=== PATIENT | female | born 1975 | race Caucasian/White ===

== ENCOUNTER → 2023-10-23 10:07 | Outpatient (BNVA) | payer SELFPAY | PROVIDERS: Visit Provider Physician Assistant Surgical ==

== ENCOUNTER 2023-12-29 07:58 | Outpatient (AMB) | payer OTHER, SELFPAY ==
--- NOTE | 2023-12-29 08:32 | MHC.OFFVISWM ---
VS Expanded 12/29/23 08:49 Height 5 ft 3.5 in Weight 275 lb 2 oz BMI 48.0 Body Fat % 48.6 Body Fat Mass 133.6 Fat Free Mass 141.6 Visceral Fat Rating 17 Body Water % 36.7 Body Water Mass 101 Basal Metabolic Rate/Score 2,020 Intake Visit Reasons: TV Revision SWL BMI 48 *SEE COMMENTS* Allergies No Known Allergies Allergy (Verified 12/29/23 08:32) Medication List - Last Reconciled 12/29/23 by Bob Morris MD asharidha root extract mg PO pwrunva-tipzbwsqymyxp-pfolamxt 250-250-65 mg (Excedrin Migraine) 1 tab PO Q4-6H PRN ibuprofen 800 mg PO Q8H PRN fvstcapz-rfj-hwta-FA-vit K-lut 4 mg iron-200 mcg-25 mcg (Centrum Minis Women 50 Plus) tabs PO zolpidem 10 mg PO BEDTIME PRN HPI HPI TV Revision SWL BMI 48 *SEE COMMENTS*: Details: Start time: 8.20am, End time: 9.09am ?I spent 44 minutes speaking with the patient on the phone plus an additional 5 minutes reviewing and updating records for a total of 49 minutes HPI Comments Details: Previous weight loss efforts: lap band Wakes up: 5am, sleeps: 9pm Breakfast: 8am (2 boiled eggs Lunch: 12pm (cafeteria food: salad bar, soup, grilled cheese Dinner: 6pm (eggs and toast, mac&cheese) Snacks: 10am (string cheese with yogurt), 4pm (protein bar, or yogurt, or string cheese), 9pm (chips, sweets) Exercise: has a home elliptical Fluids: Coffee: none, hot tea: 1-2/wk (lemon with honey), Soda: none, juice: lemonade, ETOH: 1-2/wk (2 Vodkas) [facility] Medical History (Updated 12/29/23 @ 08:38 by Bob Morris MD) Insomnia Depression Migraines Hypertension Morbid obesity Surgical History (Updated 12/29/23 @ 08:38 by Bob Morris MD) S/p bilateral carpal tunnel release Hx of laparoscopic gastric banding Telehealth Telehealth Telehealth Platform: Telephone Location of provider rendering services: practice address Location of patient: address on file Patient Identification confirmed using: Name, : Yes Telehealth method: voice only Patient verbally consented to treatment: Yes Patient verbally consented to billing insurance company: Yes Patient informed of any privacy concerns related to visit: Yes Minutes spent on Phone/Video with Pt.: 49 Assessment & Plan Assessment & Plan (1) Morbid obesity: Code(s): E66.01 - Morbid (severe) obesity due to excess calories Category: Medical Plan: 1.? Plan for lap band removal and conversion to sleeve gastrectomy. If diaphragmatic or ventral hernias are present at time of surgery, these will be repaired laparoscopically as well. Risks and complications include possible conversion to an open procedure, anastomotic leak, bleeding requiring transfusion, small bowel obstruction, , DVT and pulmonary embolism, cardiac, or pulmonary complications, as senior living complications such as anastomotic ulcer, insufficient weight loss and vitamin deficiencies. I emphasized the importance of close follow-up, adherence to instructions and good communication. 2. You will receive a link of our software halle to generate an individualized nutritional and exercise plan specific for you. Please send me a screenshot of the plans you will generate Meal to include lean meat (beef, fish, pork, turkey, chicken), or georgian yogurt, or egg whites, or beans with a salad with olive oil and fruits (berries, pears, apples, kiwi). Avoid salt, breads, potatoes, rice, pasta, desserts. ?3. If you choose shakes, each shake would be drunk slowly, like coffee in a period of 2 hours. ?4. If you choose bars, cut each bar in 4 pieces and eat each piece in 30min ?to make each bar last 2 hours. ?5. I emphasized the importance of measuring accurately the food portion and measure it when serving the food in plate ?6. The meal portions include a specific number of forks of meat and salad. You always eat the meat portion but you can replace up to half of salad/vegetables portion with rice, potatoes or pasta, or a fruit ?if you like. The less you do it the better weight loss will be. ?7. One full-size fork is what it can be scooped on the fork without falling aside and not what can be bit with the fork. Use regular forks like those you find in a typical restaurant. ?8.? Please send me weight measurements as soon as possible and then once a week. Always include your diet and exercise plan. 9. The best choice would be to purchase a stationary bike, elliptical or treadmill at home that can track calories. Let me know if you do so I can give you an exercise plan. ?10.?It is important of avoiding and for at least 18 months postoperatively and has been discussed at the infosession. ?11. Goal is to lose at least 1.5-2lbs per week ?12. Goal to lose 10% of your weight before surgery, which is about 28lbs. Ultimate weight goal: 247lbs before surgery 13. Please follow the diet plan exactly without any change. If you don't like something about the plan or you feel hungry you need to communicate with me so I can help you revise the plan. You should not change the plan yourself. 14. To be scheduled for EGD due to history of lap band to rule band erosion. The possibility of biopsies was discussed. Patient needs to avoid use of NSAIDs and aspirin for 1 week prior to EGD. Risks of perforation and bleeding was discussed with the patient. This will be an outpatient procedure with IV sedation. Orders: Orders Vitamin B12 and Folate Today E66.01 - Morbid (severe) obesity due to excess calories, I10 - Essential (primary) hypertension Zinc Today E66.01 - Morbid (severe) obesity due to excess calories, I10 - Essential (primary) hypertension Vitamin B1 Today E66.01 - Morbid (severe) obesity due to excess calories, I10 - Essential (primary) hypertension Vitamin A Today E66.01 - Morbid (severe) obesity due to excess calories, I10 - Essential (primary) hypertension Ferritin Today E66.01 - Morbid (severe) obesity due to excess calories, I10 - Essential (primary) hypertension Vitamin D 25-OH Total Today E66.01 - Morbid (severe) obesity due to excess calories, I10 - Essential (primary) hypertension XR chest 2V Today E66.01 - Morbid (severe) obesity due to excess calories, I10 - Essential (primary) hypertension ECG 12 lead EKG Today E66.01 - Morbid (severe) obesity due to excess calories, I10 - Essential (primary) hypertension FL upper GI w air Today E66.01 - Morbid (severe) obesity due to excess calories, I10 - Essential (primary) hypertension Insulin Today E66.01 - Morbid (severe) obesity due to excess calories, I10 - Essential (primary) hypertension Hemoglobin A1c Today E66.01 - Morbid (severe) obesity due to excess calories, I10 - Essential (primary) hypertension H Pylori Breath Test Today E66.01 - Morbid (severe) obesity due to excess calories, I10 - Essential (primary) hypertension Complete Blood Count Auto Diff Today E66.01 - Morbid (severe) obesity due to excess calories, I10 - Essential (primary) hypertension Lipid Panel Today E66.01 - Morbid (severe) obesity due to excess calories, I10 - Essential (primary) hypertension IRON PROFILE Today E66.01 - Morbid (severe) obesity due to excess calories, I10 - Essential (primary) hypertension Comprehensive Met. Panel Today E66.01 - Morbid (severe) obesity due to excess calories, I10 - Essential (primary) hypertension C Reactive Protein Today E66.01 - Morbid (severe) obesity due to excess calories, I10 - Essential (primary) hypertension TSH reflex Free T4 Today E66.01 - Morbid (severe) obesity due to excess calories, I10 - Essential (primary) hypertension US abdomen comp w elastography Today E66.01 - Morbid (severe) obesity due to excess calories, I10 - Essential (primary) hypertension Referrals Nutrition/Dietitian Referral E66.01 - Morbid (severe) obesity due to excess calories, I10 - Essential (primary) hypertension Behavioral Health Referral E66.01 - Morbid (severe) obesity due to excess calories, I10 - Essential (primary) hypertension
[2023-12-29 08:49] VITALS: BMI 48.0
== END 2023-12-29 09:10 | disposition home or self-care (01) ==
LOC: HO.HBS 07:58
PROVIDERS: Visit Provider Surgery
DX: E66.01 Morbid (severe) obesity due to excess calories (principal)
CPT/HCPCS: 99204

== ENCOUNTER → 2023-12-29 07:58 | Outpatient (BNVA) | payer OTHER, SELFPAY | PROVIDERS: Visit Provider Surgery ==

== ENCOUNTER 2024-01-02 07:55 | Outpatient (REF) | payer OTHER, SELFPAY ==
--- NOTE | ~2024-01-02 | US_ITS ---
EXAMINATION: US COMPLETE ABDOMEN WITH LIVER ELASTOGRAPHY CLINICAL INFORMATION: Morbid obesity. COMPARISON: Selected images of the abdomen and pelvic CT scan of 03/31/2015. TECHNIQUE: Real-time imaging of the abdominal viscera. Noninvasive ultrasound liver fibrosis assessment is performed using Ellen ElastPQ point quantification shear wave elastography (2D-SWE) with a C5-2 MHz transducer. Multiple elastography samples are obtained. The examination is somewhat technically limited by presence of shadowing from bowel gas and patient's body habitus. FINDINGS: PANCREAS: Small portions of the pancreatic head and distal pancreatic tail are obscured from visualization by overlying bowel gas. Remainder of the pancreas appears unremarkable. ABDOMINAL AORTA: The proximal, middle, and visualized distal aortic segments are normal in caliber. INFERIOR VENA CAVA: Visualized portions are normal. LIVER: The liver is normal in size and contour. The liver parenchymal echogenicity appears normal. Within the limits of study no focal liver lesion is seen. No intrahepatic biliary ductal dilatation is noted. The right lobe measures 14.8 cm in length. The left lobe measures 10.3 cm in length. Portal flow is towards the liver (hepatopetal). Shear wave liver elastography median stiffness is 1.43 m/s (reference: normal median stiffness is 1.3 m/s or less). IQR/median stiffness to assess sampling precision is 0.19 (reference: good quality data set is IQR/median stiffness of 0.15 or less). GALLBLADDER: Normal. The gallbladder is physiologically distended without evidence of stones, sludge, polyps, wall thickening or pericholecystic fluid. COMMON BILE DUCT: Not well visualized. The visualized portion of the proximal common bile duct measures 0.3 cm in diameter. RIGHT KIDNEY: Normal. No hydronephrosis. No renal calculi or focal parenchymal lesions. The kidney measures 10.7 cm in maximum dimension. LEFT KIDNEY: Normal. No hydronephrosis. No renal calculi or focal parenchymal lesions. The kidney measures 11.0 cm in maximum dimension. SPLEEN: Limited evaluation. The spleen measures 7.8 cm in maximum dimension. FREE FLUID: None. US/US abdomen comp w elastography IMPRESSION: 1. No convincing sonographic evidence of hepatic steatosis. 2. Liver elastography: Although measurements appear to rule out compensated advanced chronic liver disease, there is statistical variability of the sampling which decreases accuracy. REFERENCE: Society of Radiologists in Ultrasound Liver Stiffness Thresholds (2020): LIVER STIFFNESS THRESHOLDS: *Liver Stiffness equal or less than 1.3 m/s: High probability of being normal. *Liver Stiffness less than 1.7 m/s: In the absence of other known clinical signs, rules out compensated advanced chronic liver disease. *Liver Stiffness 1.7-2.1 m/s: Suggestive of compensated advanced chronic liver disease but need further test for confirmation. *Liver Stiffness over 2.1 m/s: Rules in compensated advanced chronic liver disease. *Liver Stiffness over 2.4 m/s: Suggestive of clinically significant portal hypertension. QUALITY OF DATA SET: *IQR/Median value equal or less than 0.15 implies a quality data set. *IQR/Median value over 0.15 implies a poor quality data set. SIGNIFICANT CHANGE FROM PRIOR EXAM: Significant change if liver stiffness measurement is 10% or greater from prior exam. OTHER CONSIDERATIONS: The stage of liver fibrosis may be overestimated in the setting of acute hepatitis, liver inflammation, elevated liver function tests, hepatic vascular congestion, obstructive cholestasis, non-fasting state, and infiltrative diseases such as amyloidosis and lymphoma. In some patients with NAFLD, the liver stiffness thresholds for compensated advanced chronic liver disease may be lower. In causes other than viral hepatitis and NAFLD, liver stiffness thresholds are not well established.
--- NOTE | ~2024-01-02 | XR_ITS ---
EXAMINATION: XR CHEST CLINICAL INFORMATION: Obesity. COMPARISON: No similar priors. TECHNIQUE: 2 views of the chest were obtained. FINDINGS: Normal appearance of the cardiomediastinal silhouette. No focal airspace opacities, pleural effusion or pneumothorax. Gastric lap band with normal Phi-angle. No acute osseous findings. XR/XR chest 2V IMPRESSION: 1. No acute cardiopulmonary findings. 2. Gastric lap band with normal Phi-angle.
== END 2024-01-02 07:56 | disposition home or self-care (01) ==
LOC: HO.US 07:55
PROVIDERS: PCP Internal Medicine; Visit Provider Surgery
DX: E66.01 Morbid (severe) obesity due to excess calories (principal); I10 Essential (primary) hypertension
CPT/HCPCS: 71046; 76700; 76981

== ENCOUNTER 2024-01-05 08:56 | Outpatient (REF) | payer OTHER, SELFPAY ==
--- NOTE | ~2024-01-05 | FL_ITS ---
EXAMINATION: XR FLUOROSCOPY UPPER GI WITH AIR CLINICAL INFORMATION: History of gastric band placement. Morbid obesity. COMPARISON: None TECHNIQUE: Fluoroscopic air contrast upper GI examination was performed utilizing standard techniques with thin and thick barium and effervescent granules. Numerous spot images were obtained. FINDINGS: Dual and single contrast images of the esophagus demonstrate normal caliber, contour, and mucosal pattern. No evidence of stricture, mass, or ulcerations identified. No cricopharyngeal achalasia is present. Esophageal peristalsis was normal. Small type I hiatal hernia is present. No significant gastroesophageal reflux was seen during the course of the examination and on reflux views. Dual contrast and single contrast images of the stomach demonstrated a normal contour and mucosal pattern without evidence of mass, ulceration, or other abnormality. A gastric band is present. Phi angle is normal at 30 degrees. No evidence of slippage. Contrast freely passed into the gastric antrum and duodenal bulb without delay. Single and air-contrast images of the duodenal bulb demonstrate no abnormality. The duodenal sweep has a normal appearance, course, and mucosal fold appearance. The imaged proximal jejunum has a normal fold pattern and caliber. FLUOROSCOPY TIME: 3 minutes 45 seconds Number of Spot Images: 8 Number of Cine: 14 DOSE AREA PRODUCT: [id number] uGy-m2 (microgray-meter squared) FL/FL upper GI w air IMPRESSION: 1. Small type I hiatal hernia without evidence of gastroesophageal reflux. 2. Status post placement of a gastric band. No slippage is present. This procedure was performed by Jere Wu PA-C, and supervised by Dr. Saunders
== END 2024-01-05 08:57 | disposition home or self-care (01) ==
LOC: HO.XRAY 08:56
PROVIDERS: PCP Internal Medicine; Visit Provider Surgery
DX: E66.01 Morbid (severe) obesity due to excess calories (principal); I10 Essential (primary) hypertension
CPT/HCPCS: 74246

== ENCOUNTER → 2024-01-05 09:00 | Outpatient (BNV) | payer OTHER, SELFPAY | PROVIDERS: PCP Internal Medicine; Visit Provider Physician Assistant Surgical | DX: E66.01 Morbid (severe) obesity due to excess calories (principal); Z98.84 Bariatric surgery status | CPT/HCPCS: 74246 ==

== ENCOUNTER 2024-01-20 10:12 | Outpatient (AMB) | payer OTHER, SELFPAY ==
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
== END 2024-01-20 10:16 | disposition home or self-care (01) ==
LOC: HO.HBST 10:12
PROVIDERS: PCP Internal Medicine; Visit Provider Counselor Mental Health
DX: T14.90XA Injury, unspecified, initial encounter (principal); Z98.84 Bariatric surgery status; F50.9 Eating disorder, unspecified

== ENCOUNTER → 2024-01-20 10:12 | Outpatient (BNVA) | payer OTHER, SELFPAY | PROVIDERS: PCP Internal Medicine; Visit Provider Counselor Mental Health | DX: T14.90XA Injury, unspecified, initial encounter (principal); Z98.84 Bariatric surgery status; F50.9 Eating disorder, unspecified ==